=== PATIENT | male | born 1935 | race Caucasian/White ===

== ENCOUNTER 2016-10-23 06:10 | Day surgery (SDC) | payer OTHER, BC ==
[2016-10-16 17:06] VITALS: BMI 22.2
[2016-10-23] MEDS ORDERED: SUCCINYLCHOLINE CHLORIDE 200 MG/10 ML VIAL ONE (06:57)
[2016-10-23] MEDS ORDERED: PROPOFOL 20 ML ONE (06:57)
[2016-10-23] MEDS ORDERED: LIDOCAINE HCL/PF 2% SDV 5ML VIAL ONE (06:57)
[2016-10-23] MEDS ORDERED: MIDAZOLAM HCL 2 MG/2 ML SINGLE DOSE VIAL ONE (07:18)
[2016-10-23] MEDS ORDERED: LIDOCAINE HCL 1%, 10 MG/ML (20ML VIAL) INF ONE (07:35)
[2016-10-23] MEDS ORDERED: LIDOCAINE 1%/EPI 1:100000 (20 ML MULTI DOSE VIAL) ONE (07:42)
[2016-10-23] MEDS ORDERED: LIDOCAINE HCL 1%, 10 MG/ML (20ML VIAL) ONE (07:42)
[2016-10-23] MEDS ORDERED: KETOROLAC TROMETHAMINE 30 MG/1 ML VIAL ONE (07:48)
[2016-10-23] MEDS ORDERED: ONDANSETRON 4 MG/2 ML VIAL ONE (07:48)
[2016-10-23] MEDS ORDERED: DEXAMETHASONE SOD PHOSPHATE 4 MG/1 ML VIAL ONE (07:53)
[2016-10-23 08:34] VITALS: TEMP 98.2
[2016-10-23 08:53] VITALS: BP 133/74; PULSE 52
[2016-10-23] MEDS ORDERED: ACETAMINOPHEN 325 MG TABLET (FP) PO PRN (09:04)
[2016-10-23] MEDS ORDERED: ONDANSETRON 4 MG/2 ML VIAL IVPUSH PRN (09:04)
[2016-10-23] MEDS ORDERED: oxyCODONE HCL 5 MG TABLET PO PRN (09:04)
[2016-10-23] MEDS ORDERED: LACTATED RINGERS SOLUTION 1,000 ML IV SCH (09:15)
--- NOTE | 2016-10-23 10:30 | OP ---
DATE OF OPERATION: 10/23/2016 SURGEON: Clemente Fajardo MD PREOPERATIVE DIAGNOSIS: Right carpal tunnel syndrome. POSTOPERATIVE DIAGNOSIS: Right carpal tunnel syndrome. OPERATIVE PROCEDURE: Right carpal tunnel release. ANESTHESIA: Local with sedation. COMPLICATIONS: None. ESTIMATED BLOOD LOSS: Minimal. INDICATIONS FOR PROCEDURE: The patient is an 81-year-old male with the above findings, indicated for operative treatment. The risks, benefits, and alternatives were discussed with the patient, and proper informed consent was obtained. PROCEDURE: After proper identification of the patient and the correct operative site, the patient was brought to the operating room and placed supine on the table with prominences well padded. Sedation was given by the anesthesiologist. Local anesthesia was given with 2% lidocaine. Right upper extremity was prepped and draped in the usual sterile fashion. Well-padded tourniquet was placed with a sterile prep. Esmarch bandage used to exsanguinate the right upper extremity. Tourniquet inflated to 250 mmHg. A longitudinal incision made over the proximal aspect of the palm. Incision was taken sharply through the skin with blunt and sharp dissection through subcutaneous tissues. Palmar fascia was divided longitudinally. The transverse carpal ligament along with the distal 4 cm of antebrachial fascia was divided longitudinally under direct visualization with loupe magnification. This provided complete release of the median nerve at the wrist. Wound was irrigated with saline and repaired with 5-0 nylon suture. Sterile dressings were applied. The patient was reversed from anesthesia and brought to the recovery room in stable condition. He tolerated the procedure well. Sultana ELI/[id number]
== END 2016-10-23 09:07 | disposition home or self-care (01) ==
LOC: FASU 06:10
PROVIDERS: ATTEND Orthopaedic Surgery Hand Surgery
PROC: 01N50ZZ Release Median Nerve, Open Approach (ICD-10-PCS; principal; 2016-10-23 07:31)
DX: G56.01 Carpal tunnel syndrome, right upper limb (principal)

== ENCOUNTER 2016-11-20 07:58 | Day surgery (SDC) | payer OTHER, BC ==
[2016-11-18 12:34] VITALS: BMI 22.2
[2016-11-20] MEDS: CIPROFLOXACIN 0.3% EYE DROPS 5 ML BOTTLE ONE ×3 (08:30→08:40)
[2016-11-20] MEDS: CYCLOPENTOLATE 2% OPHTH SOLN 2 ML BOTTLE ONE ×3 (08:30→08:40)
[2016-11-20] MEDS: PHENYLEPHRINE 2.5% OPHTH SOLN 15 ML BOTTLE ONE ×3 (08:30→08:40)
[2016-11-20] MEDS: TROPICAMIDE 1% OPHTH SOLN 15 ML BOTTLE ONE ×3 (08:30→08:40)
[2016-11-20 08:34] VITALS: TEMP 97.5
[2016-11-20] MEDS ORDERED: MIDAZOLAM HCL 2 MG/2 ML SINGLE DOSE VIAL ONE (10:13)
[2016-11-20 11:21] VITALS: BP 124/72; PULSE 57
--- NOTE | 2016-11-20 11:47 | OP ---
DATE OF OPERATION: 11/20/2016 OPERATIVE PROCEDURE: Lens phacoemulsification with posterior chamber intraocular lens placement, right eye. PREOPERATIVE DIAGNOSIS: Visually significant cataract of right eye. POSTOPERATIVE DIAGNOSIS: Visually significant cataract of right eye. SURGEON: Jose Robles M.D. ANESTHESIA: MAC. PROCEDURE: The patient was brought to the operating room and placed under monitored anesthesia care by Anesthesia. A drop of Tetracaine was then placed over the right eye. The patient was then prepped and draped in the usual sterile manner. A speculum was then placed over the right eye. The eye was then well irrigated with copious amounts of BSS (balanced salt solution). The operating microscope was then moved into position. A paracentesis was performed using a 15 degree blade. At this point 0.5 mL of 1% preservative free-lidocaine was injected into the anterior chamber. Amvisc plus was then injected into the anterior chamber. A clear corneal incision was then formed using a 2.2 mm keratome. A capsulorrhexis was then performed in a continuous circular fashion beginning with a cystotome completed with an Utratas forceps. Hydrodissection was then performed using BSS on a cannula. The phaco probe was then introduced through the corneal wound and the cataract was removed using the phaco chop technique. Approximately 3 seconds of absolute phaco time was used. The remaining cortex was then removed using irrigation and aspiration with an I/A probe. The capsule was then filled with regular Amvisc and the capsule was noted to be intact. A previously selected foldable posterior chamber intraocular lens was then injected into the capsule through the corneal wound using a lens injector. It was then dialed into position using a Sinskey hook. The Amvisc was then removed using irrigation and aspiration. Miostat was then injected through the paracentesis to constrict the pupil. The paracentesis and corneal wound were then hydrated and noted to be water tight. A drop of Maxitrol was then placed over the eye. The speculum was removed and clear shield was taped over the eye. The patient tolerated the procedure well and there were no surgical complications. The patient was asked to follow up in my office the next day. JOSE ROBLES M.D. BALJINDER/[id number]
== END 2016-11-20 11:30 | disposition home or self-care (01) ==
LOC: FASU 07:58
PROVIDERS: ATTEND Ophthalmology
PROC: 08RJ3JZ Replacement of Right Lens with Synthetic Substitute, Percutaneous Approach (ICD-10-PCS; principal; 2016-11-20 10:24)
DX: H26.8 Other specified cataract (principal)

== ENCOUNTER 2016-12-11 09:11 | Day surgery (SDC) | payer OTHER, BC ==
[2016-12-10 10:00] VITALS: BMI 22.2
[2016-12-11] MEDS: PHENYLEPHRINE 2.5% OPHTH SOLN 15 ML BOTTLE ONE ×3 (09:15→09:25)
[2016-12-11] MEDS: CIPROFLOXACIN 0.3% EYE DROPS 5 ML BOTTLE ONE ×3 (09:15→09:25)
[2016-12-11] MEDS: CYCLOPENTOLATE 2% OPHTH SOLN 2 ML BOTTLE ONE ×3 (09:15→09:25)
[2016-12-11] MEDS: TROPICAMIDE 1% OPHTH SOLN 15 ML BOTTLE ONE ×3 (09:15→09:25)
[2016-12-11] MEDS ORDERED: MIDAZOLAM HCL 2 MG/2 ML SINGLE DOSE VIAL ONE (10:43)
[2016-12-11] MEDS ORDERED: ONDANSETRON 4 MG/2 ML VIAL ONE (10:44)
[2016-12-11 12:06] VITALS: BP 121/80; PULSE 57; TEMP 98
== END 2016-12-11 12:05 | disposition home or self-care (01) ==
LOC: FASU 09:11
PROVIDERS: ATTEND Ophthalmology
PROC: 08RK3JZ Replacement of Left Lens with Synthetic Substitute, Percutaneous Approach (ICD-10-PCS; principal; 2016-12-11 10:57)
DX: H26.8 Other specified cataract (principal)

== ENCOUNTER 2017-12-26 10:21 | Inpatient (IN) | payer OTHER, BC ==
[2017-12-26] MEDS ORDERED: SODIUM CHLORIDE FOR INHALATION 3 ML VIAL.NEB IH ONE (10:54)
[2017-12-26 12:11] LABS: MEAN PLT VOLUME 8.1 fl (7.5-11.1)
[2017-12-26 12:13] LABS: BASO % 0.2 % (0-2.0); HEMATOCRIT 38.9 % (35.4-49); HEMOGLOBIN 12.9 GM/dl (11.7-16.9); LYMPH % 8.6 % (8-40); MCHC 33.2 g/dl (32.0-35.9); MEAN CELL VOLUME 90.5 fl (80-96); MONO % 9.4 % (3.8-10.2); NEUT % 80.8 % (42.8-82.8); PLATELET COUNT 203 K/MM3 (134-434); RDW 12.8 % (11.9-15.9)
[2017-12-26 12:16] LABS: ALBUMIN 3.4 g/dl (3.5-5.0); ALK PHOS 71 U/L (32-92); ANION GAP 7 MMOL/L (8-16); BILIRUBIN,TOTAL 0.7 mg/dl (0.2-1.0); BLOOD UREA NITROGEN 25 mg/dl (7-18); CALCIUM 8.5 mg/dl (8.4-10.2); CHLORIDE 105 mmol/L (98-107); CO2 21 mmol/L (22-28); CREATININE 1.3 mg/dl (0.6-1.3); GLUCOSE,RANDOM 87 mg/dl (74-106); POTASSIUM 3.9 mmol/L (3.5-5.1); SGOT/AST 27 U/L (10-42); SGPT/ALT 35 U/L (10-40); SODIUM 133 mmol/L (136-145); TOT PROT 6.6 g/dl (6.4-8.3)
--- NOTE | 2017-12-26 12:19 | PDOC ---
History of Present Illness - General Chief Complaint: Shortness of Breath Stated Complaint: shortness of breath Time Seen by Provider: 12/26/17 10:29 - History of Present Illness Initial Comments: 12/26/17 12:17 82 M with no significant PMH presents to ED with SOB and cough. Pt states that he started having symptoms 3 days ago. He reports fevers, bodyaches, and generalized malaise. Pt was seen by his PMD Dr. Polk yesterday and had a flu swab that was positive for flu B. Pt states that he was started on tamiflu yesterday. However, today pt returns with worsening SOB and cough. He reports dry cough. Denies chest pain. Denies F/C. Denies leg swelling. Past History - Past Medical History Allergies/Adverse Reactions: Allergies Allergy/AdvReac Type Severity Reaction Status Date / Time Penicillins Allergy Intermediate Swelling Verified 12/26/17 10:30 povidone-iodine Allergy swelling Verified 12/26/17 10:30 [From Betadine] soap [From Betadine] Allergy swelling Verified 12/26/17 10:30 Home Medications: Ambulatory Orders Cholecalciferol (Vitamin D3) [Vitamin D3] 2,000 unit PO DAILY capsule 03/22/16 Oseltamivir Phosphate [Tamiflu] 75 mg PO BID 12/26/17 Anemia: No Asthma: No Cancer: Yes (BREAST CANCER-RIGHT 2006) Cardiac Disorders: No CVA: No COPD: No CHF: No Dementia: No Diabetes: No GI Disorders: No Disorders: No HTN: No Hypercholesterolemia: No Liver Disease: No Seizures: No Thyroid Disease: No Other medical history: paget's disease - Surgical History Abdominal Surgery: Yes (Hernia repair) Appendectomy: Yes (2010,RUPTURED) Cardiac Surgery: No Cholecystectomy: No Lung Surgery: No Neurologic Surgery: No Orthopedic Surgery: Yes (BACK & RIGHT LEG DURING POLISH WAR) - Immunization History Immunization Up to Date: Yes (flushot 3 weeks ago 12/2017) - Suicide/Smoking/Psychosocial Hx Smoking History: Former smoker Have you smoked in the past 12 months: No If you are a former smoker, when did you quit?: 1954 Information on smoking cessation initiated: No Hx Alcohol Use: No Drug/Substance Use Hx: No Substance Use Type: None Hx Substance Use Treatment: No Review of Systems - Review of Systems Comments:: 12/26/17 12:18 GENERAL/CONSTITUTIONAL: No fever or chills. + weakness. HEAD, EYES, EARS, NOSE AND THROAT: No change in vision. No ear pain or discharge. No sore throat. CARDIOVASCULAR: No chest pain, no loss of consciousness RESPIRATORY: + cough, + SOB, no wheezing, or hemoptysis. GASTROINTESTINAL: No nausea, vomiting, diarrhea or constipation. GENITOURINARY: No dysuria, frequency, or change in urination. MUSCULOSKELETAL: No joint or muscle swelling or pain. No neck or back pain. SKIN: No rash NEUROLOGIC: No vertigo, no change in strength/sensation. ENDOCRINE: No increased thirst. No abnormal weight change. HEMATOLOGIC/LYMPHATIC: No anemia, easy bleeding, or history of blood clots. ALLERGIC/IMMUNOLOGIC: No hives or skin allergy. *Physical Exam - Vital Signs Last Vital Signs Temp Pulse Resp BP Pulse Ox 97.6 F 63 20 131/74 99 12/26/17 10:21 12/26/17 10:21 12/26/17 10:21 12/26/17 10:21 12/26/17 10:21 - Physical Exam Comments: 12/26/17 12:18 "GENERAL: Awake, alert, and fully oriented, in no acute distress. HEAD: No signs of trauma EYES: PERRLA, EOMI, sclera anicteric, conjunctiva clear ENT: Auricles normal inspection, hearing grossly normal, nares patent, oropharynx clear without exudates. Moist mucosa NECK: Nontender, no stepoffs, Normal ROM, supple, no lymphadenopathy, JVD, or masses LUNGS: Breath sounds equal, clear to auscultation bilaterally. No wheezes, and no crackles HEART: Regular rate and rhythm, normal S1 and S2, no murmurs, rubs or gallops ABDOMEN: Soft, nontender, normoactive bowel sounds. No guarding, no rebound. No masses EXTREMITIES: Normal range of motion, no edema. No clubbing or cyanosis. No cords, erythema, or tenderness NEUROLOGICAL: Cranial nerves II through XII intact. 5/5 strength and sensation in all extremities, Normal speech, normal gait, normal cerebellar function SKIN: Warm, Dry, normal turgor, no rashes or lesions noted. Heart Score/ECG Review - ECG Impressions Comment:: 12/26/17 12:19 NSR, no TAYE/STDs, no TWIs, axis wnl, intervals wnl, rate 68 ED Treatment Course - LABORATORY CBC & Chemistry Diagram: 12/26/17 11:14 12/26/17 11:14 - RADIOLOGY Radiology Studies Ordered: Category Date Time Status CHEST PA & LAT [RAD] Stat Radiology 12/26/17 10:53 Completed - Medications Given in the ED: ED Medications Discontinued Medications Generic Name Dose Route Start Last Admin Trade Name Freq PRN Reason Stop Dose Admin Sodium Chloride 3 ml 12/26/17 10:54 12/26/17 11:06 Normal Saline For Inhalation - IH 12/26/17 10:55 3 ml ONCE ONE Administration Medical Decision Making - Medical Decision Making 12/26/17 12:18 82 M with SOB, cough, weakness. Diagnosed with influenza yesterday and returning with worsening SOB. Concerning for possible PNA. Pt with no clinical signs of volume overload. Will r/o ACS, though pt's EKG is nonischemic. - Labs - CXR 12/26/17 12:49 CXR shows RUL consolidation Labs wnl Will start ceftriaxone + azithro for PNA Continue tamiflu 12/26/17 13:24 Pt admitted to hospitalist. *DC/Admit/Observation/Transfer Diagnosis at time of Disposition: Influenza B, Pneumonia - Discharge Dispostion Condition at time of disposition: Fair Decision to Admit order: Yes - Referrals - Patient Instructions - Post Discharge Activity - Attestations Physician Attestion: 12/26/17 13:24 I, Dr. Rusty Ortega MD, attest that this document has been prepared under my direction and personally reviewed by me in its entirety. I further attest, that it accurately reflects all work, treatment, procedures and medical decision -making performed by me.
[2017-12-26] MEDS ORDERED: CEFTRIAXONE 1,000 MG in DEXTROSE 5%-WATER - 50 ML IVPB ONE (12:38)
[2017-12-26] MEDS ORDERED: AZITHROMYCIN IVPB 500 MG in DEXTROSE 5%-WATER - 250 ML IVPB ONE (12:39)
[2017-12-26] MEDS ORDERED: AZITHROMYCIN 500 MG VIAL IVPB ONE (12:46)
[2017-12-26] MEDS ORDERED: cefTRIAXone SODIUM 1 GM VIAL ONE (12:47)
[2017-12-26] MEDS ORDERED: ACETAMINOPHEN 325 MG TABLET (FP) PO ONE (13:53)
[2017-12-26] MEDS ORDERED: ACETAMINOPHEN 325 MG TABLET (FP) ONE (14:18)
--- NOTE | 2017-12-26 14:49 | HP ---
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 Patient was seen by his PCP Dr. Polk yesterday and a flu swab was positive for Influenza B. Patient was started on Tamiflu. Patient presented to the ED today with worsening cough and SOB. Temp at home to 103.4 with shaking chills, headache, body aches. 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) PAST SURGICAL HISTORY: Right mastectomy 2006 Appendectomy 2010 Hernia repair Back and right leg surgery during [place] Social History: Smoking: quit 1954 Alcohol: no Drugs: no Family History: Allergies Penicillins Allergy (Intermediate, Verified 12/26/17 10:30) Swelling povidone-iodine [From Betadine] Allergy (Verified 12/26/17 10:30) swelling soap [From Betadine] Allergy (Verified 12/26/17 10:30) swelling HOME MEDICATIONS: Home Medications Medication Instructions Recorded Oseltamivir Phosphate [Tamiflu] 75 mg PO BID 12/26/17 REVIEW OF SYSTEMS CONSTITUTIONAL: +fever, chills, weakness Absent: diaphoresis, malaise, loss of appetite, weight change HEENT: Absent: rhinorrhea, nasal congestion, throat pain, throat swelling, difficulty swallowing, mouth swelling, ear pain, eye pain, visual changes CARDIOVASCULAR: Absent: chest pain, syncope, palpitations, irregular heart rate, lightheadedness , peripheral edema RESPIRATORY: +cough, SOB Absent: dyspnea with exertion, orthopnea, wheezing, stridor, hemoptysis GASTROINTESTINAL: Absent: abdominal pain, abdominal distension, nausea, vomiting, diarrhea, constipation, melena, hematochezia GENITOURINARY: Absent: dysuria, frequency, urgency, hesitancy, hematuria, flank pain, genital pain MUSCULOSKELETAL: Absent: myalgia, arthralgia, joint swelling, back pain, neck pain SKIN: Absent: rash, itching, pallor HEMATOLOGIC/IMMUNOLOGIC: Absent: easy bleeding, easy bruising, lymphadenopathy, frequent infections ENDOCRINE: Absent: unexplained weight gain, unexplained weight loss, heat intolerance, cold intolerance NEUROLOGIC: Absent: headache, focal weakness or paresthesias, dizziness, unsteady gait, seizure, mental status changes, bladder or bowel incontinence PSYCHIATRIC: Absent: anxiety, depression, suicidal or homicidal ideation, hallucinations. PHYSICAL EXAMINATION Vital Signs - 24 hr 12/26/17 12/26/17 10:21 14:34 Temperature 97.6 F 100 F H Pulse Rate 63 Pulse Rate [ 102 H Apical] Respiratory 20 20 Rate Blood Pressure 131/74 Blood Pressure 132/74 [Arm] O2 Sat by Pulse 99 96 Oximetry (%) GENERAL: Awake, alert, and fully oriented, in mild distress from coughing HEAD: Normal with no signs of trauma. EYES: Pupils equal, round and reactive to light, extraocular movements intact, sclera anicteric, conjunctiva clear. No lid lag. EARS, NOSE, THROAT: Ears normal, nares patent, oropharynx clear without exudates. Moist mucous membranes. NECK: Normal range of motion, supple without lymphadenopathy, JVD, or masses. LUNGS: Diminished on the right HEART: Regular rate and rhythm, normal S1 and S2 +murmur ABDOMEN: Soft, nontender, not distended MUSCULOSKELETAL: Normal range of motion at all joints. No bony deformities or tenderness. No CVA tenderness. UPPER EXTREMITIES: 2+ pulses, warm, well-perfused. No cyanosis. No clubbing. No peripheral edema. LOWER EXTREMITIES: 2+ pulses, warm, well-perfused. No calf tenderness. No peripheral edema. NEUROLOGICAL: Cranial nerves II-XII intact. Normal speech. Laboratory Results - last 24 hr 12/26/17 12/26/17 12/26/17 11:14 11:14 11:14 WBC 6.0 RBC 4.30 Hgb 12.9 Hct 38.9 MCV 90.5 MCH 30.0 MCHC 33.2 RDW 12.8 Plt Count 203 D MPV 8.1 Absolute Neuts (auto) 4.8 Neutrophils % 80.8 Lymphocytes % 8.6 D Monocytes % 9.4 Eosinophils % 1.0 Basophils % 0.2 Sodium 133 L Potassium 3.9 Chloride 105 Carbon Dioxide 21 L D Anion Gap 7 L BUN 25 H Creatinine 1.3 Creat Clearance w eGFR 52.59 Random Glucose 87 Calcium 8.5 Total Bilirubin 0.7 AST 27 D ALT 35 D Alkaline Phosphatase 71 Creatine Kinase 52 Troponin I B-Natriuretic Peptide 591.3 H Total Protein 6.6 Albumin 3.4 L 12/26/17 11:14 WBC RBC Hgb Hct MCV MCH MCHC RDW Plt Count MPV Absolute Neuts (auto) Neutrophils % Lymphocytes % Monocytes % Eosinophils % Basophils % Sodium Potassium Chloride Carbon Dioxide Anion Gap BUN Creatinine Creat Clearance w eGFR Random Glucose Calcium Total Bilirubin AST ALT Alkaline Phosphatase Creatine Kinase Troponin I < 0.03 B-Natriuretic Peptide Total Protein Albumin ASSESSMENT/PLAN 82 year-old male with a 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 Community-acquired pneumonia Influenza B --start Zosyn --received 2 doses Tamiflu prior to arrival, continue 8 more doses --duonebs --maintain SpO2>94% --ID to follow Paget's Disease of the breast --stable FEN Fluids: NS@75mL/hr Electrolytes: replete as inidcated Nutrition: regular diet DVT prophylaxis: subq heparin Dispo: continues to require inpatient care. Full code. Visit type - Emergency Visit Emergency Visit: Yes ED Registration Date: 12/27/17 Care time: The patient presented to the Emergency Department on the above date and was hospitalized for further evaluation of their emergent condition. - New Patient This patient is new to me today: Yes Date on this admission: 12/27/17 - Critical Care Critical Care patient: No
[2017-12-26 16:02] VITALS: BMI 22.5
[2017-12-26] MEDS ORDERED: SODIUM CHLORIDE 500 ML IV STA (18:30)
[2017-12-26] MEDS: ALBUTEROL SO4 2.5/IPRATROPIUM 0.5 INH SOL 3 ML VIAL.NEB. NEB SCH ×2 (19:19→21:04)
[2017-12-26] MEDS: SODIUM CHLORIDE 1,000 ML IV SCH (21:05)
[2017-12-26] MEDS: PIPERACILLIN/TAZOB 3.375 GM 3.375 GM/50 ML BAG IVPB SCH (21:05)
[2017-12-26] MEDS ORDERED: OSELTAMIVIR PHOSPHATE 75 MG CAPSULE PO SCH (22:00)
[2017-12-26] MEDS: OSELTAMIVIR PHOSPHATE 30 MG CAPSULE PO SCH (22:00)
[2017-12-27] MEDS: PIPERACILLIN/TAZOB 3.375 GM 3.375 GM/50 ML BAG IVPB SCH ×3 (02:00→17:09)
[2017-12-27] MEDS: ACETAMINOPHEN 325 MG TABLET (FP) PO PRN ×3 (06:35→18:50)
[2017-12-27] MEDS: HEPARIN NA (PORCINE) 5,000 UNITS/ML 1ML VIAL SQ SCH ×3 (06:35→22:09)
[2017-12-27] MEDS: ALBUTEROL SO4 2.5/IPRATROPIUM 0.5 INH SOL 3 ML VIAL.NEB. NEB SCH ×4 (08:00→20:00)
--- NOTE | 2017-12-27 09:53 | CON.ID ---
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 Polk yesterday and a flu swab was positive for Influenza B and was started on tamiflu inspite of tamiflu patient became worse and had shaking chills and fever and came to the ER and was admitted patients was worked up and found to have infiltrate on the xray and the patient just got her ct scan completed currently patient is comfortable in the room - History Source History Provided By: Patient Limitations to Obtaining History: No Limitations - Alcohol/Substance Use Hx Alcohol Use: No - Smoking History Smoking history: Former smoker Have you smoked in the past 12 months: No If you are a former smoker, when did you quit?: 1954 Home Medications - Allergies Allergies/Adverse Reactions: Allergies Allergy/AdvReac Type Severity Reaction Status Date / Time Penicillins Allergy Intermediate Swelling Verified 12/26/17 10:30 povidone-iodine Allergy swelling Verified 12/26/17 10:30 [From Betadine] soap [From Betadine] Allergy swelling Verified 12/26/17 10:30 - Home Medications Home Medications: Ambulatory Orders Cholecalciferol (Vitamin D3) [D3-2000] 1 tab PO DAILY 12/26/17 Clindamycin [Cleocin -] 300 mg PO TID #15 capsule 12/30/17 Review of Systems - Review of Systems Constitutional: reports: Chills, Fever Eyes: reports: No Symptoms HENT: reports: No Symptoms Cardiovascular: reports: No Symptoms Respiratory: reports: Cough, SOB, SOB on Exertion Gastrointestinal: reports: No Symptoms Genitourinary: reports: No Symptoms Musculoskeletal: reports: No Symptoms Integumentary: reports: No Symptoms Neurological: reports: No Symptoms Endocrine: reports: No Symptoms Hematology/Lymphatic: reports: No Symptoms Psychiatric: reports: No Symptoms Physical Exam Vital Signs: Vital Signs Temperature 102.9 F H 12/27/17 06:49 Pulse Rate 81 12/27/17 06:49 Respiratory Rate 18 12/27/17 06:49 Blood Pressure 130/56 L 12/27/17 06:49 O2 Sat by Pulse Oximetry (%) 98 12/27/17 06:49 Constitutional: Yes: No Distress, Calm Eyes: Yes: Conjunctiva Clear HENT: Yes: Atraumatic, Normocephalic Neck: Yes: Supple, Trachea Midline Cardiovascular: Yes: Regular Rate and Rhythm Respiratory: Yes: WNL, On Nasal O2, Poor Air Entry Gastrointestinal: Yes: Normal Bowel Sounds, Soft Musculoskeletal: Yes: WNL Extremities: Yes: WNL Labs: CBC, BMP 12/26/17 11:14 12/26/17 11:14 Imaging - Results Chest X-ray: Report Reviewed, Image Reviewed Cat Scan: Image Reviewed Assessment/Plan Problem List - Problems (1) Influenza B Code(s): J10.1 - FLU DUE TO OTH IDENT INFLUENZA VIRUS W OTH RESP MANIFEST (2) Pneumonia Code(s): J18.9 - PNEUMONIA, UNSPECIFIED ORGANISM (3) Hilar adenopathy Code(s): R59.0 - LOCALIZED ENLARGED LYMPH NODES (4) Mediastinal adenopathy Code(s): R59.0 - LOCALIZED ENLARGED LYMPH NODES ct scan noted patient has extensive pneumonia post influenza plan will start patient on zosyn stop zithro incentive tammy nutrition rest as per the team await for cx reports and official result of ct scan
[2017-12-27] MEDS ORDERED: AZITHROMYCIN IVPB 500 MG/250 ML BAG IVPB SCH (10:00)
[2017-12-27] MEDS: guaiFENesin/CODEINE 10 ML UNIT-DOSE CUPS PO PRN (10:54)
[2017-12-27] MEDS: OSELTAMIVIR PHOSPHATE 30 MG CAPSULE PO SCH ×2 (10:54→22:10)
[2017-12-27 12:51] LABS: BASO % 0.4 % (0-2.0); EOS % 0.6 % (0-4.5); HEMATOCRIT 36.2 % (35.4-49); HEMOGLOBIN 11.9 GM/dl (11.7-16.9); LYMPH % 13.1 % (8-40); MCHC 32.8 g/dl (32.0-35.9); MEAN CELL VOLUME 91.4 fl (80-96); MONO % 11.3 % (3.8-10.2); NEUT % 74.6 % (42.8-82.8); PLATELET COUNT 201 K/MM3 (134-434); RBC 3.96 M/mm3 (4.00-5.60); RDW 13.2 % (11.9-15.9); WHITE BLOOD COUNT 6.2 K/mm3 (4.0-10.8)
[2017-12-27 12:55] LABS: ACTIVATED PTT 29.1 SECONDS (25.2-36.5)
[2017-12-27 12:59] LABS: INR 1.26 (0.82-1.09)
[2017-12-27 13:24] LABS: ALK PHOS 74 U/L (32-92); ANION GAP 7 MMOL/L (8-16); BILIRUBIN,TOTAL 0.6 mg/dl (0.2-1.0); BLOOD UREA NITROGEN 16 mg/dl (7-18); CALCIUM 8.1 mg/dl (8.4-10.2); CHLORIDE 102 mmol/L (98-107); CO2 22 mmol/L (22-28); CREATININE 1.2 mg/dl (0.6-1.3); GLUCOSE,RANDOM 151 mg/dl (74-106); MAGNESIUM 1.9 mg/dL (1.8-2.4); PHOSPHOROUS 2.5 mg/dl (2.5-4.6); POTASSIUM 3.9 mmol/L (3.5-5.1); SGOT/AST 34 U/L (10-42); SGPT/ALT 41 U/L (10-40); SODIUM 131 mmol/L (136-145)
--- NOTE | 2017-12-27 15:42 | PN ---
Physical Exam: SUBJECTIVE: Patient seen and examined OBJECTIVE: Vital Signs Period Temp Pulse Resp BP Sys/Woodard Pulse Ox Last 24 Hr 98.2 F-103 F 66-87 18-18 100-130/46-64 96-100 GENERAL: The patient is awake, alert, and fully oriented, in no acute distress. LUNGS: Diminished sounds on right HEART: Regular rate and rhythm, S1, S2 +murmur ABDOMEN: Soft, nontender, nondistended EXTREMITIES: 2+ pulses, warm, well-perfused, no edema. NEUROLOGICAL: Cranial nerves II through XII grossly intact. Normal speech Laboratory Results - last 24 hr 12/27/17 12/27/17 12/27/17 12:25 12:25 12:25 WBC 6.2 RBC 3.96 L Hgb 11.9 Hct 36.2 MCV 91.4 MCH 30.0 MCHC 32.8 RDW 13.2 Plt Count 201 MPV 8.0 Absolute Neuts (auto) 4.7 Neutrophils % 74.6 Lymphocytes % 13.1 D Monocytes % 11.3 H Eosinophils % 0.6 Basophils % 0.4 PT with INR 14.0 H INR 1.26 H PTT (Actin FS) 29.1 Sodium 131 L Potassium 3.9 Chloride 102 Carbon Dioxide 22 Anion Gap 7 L BUN 16 Creatinine 1.2 Creat Clearance w eGFR 57.68 Random Glucose 151 H D Calcium 8.1 L Phosphorus 2.5 Magnesium 1.9 Total Bilirubin 0.6 AST 34 D ALT 41 H Alkaline Phosphatase 74 Total Protein 6.0 L Albumin 3.0 L Active Medications Generic Name Dose Route Start Last Admin Trade Name Freq PRN Reason Stop Dose Admin Acetaminophen 650 mg 12/26/17 18:18 12/27/17 10:54 Tylenol - PO 650 mg Q6H PRN Administration FEVER Albuterol/Ipratropium 1 amp 12/26/17 18:15 12/27/17 08:00 Duoneb - NEB 1 amp RQID MINH Administration Guaifenesin/Codeine Phosphate 10 ml 12/26/17 18:48 12/27/17 10:54 Robitussin Ac - PO 10 ml Q8H PRN Administration COUGH Heparin Sodium (Porcine) 5,000 unit 12/27/17 06:00 12/27/17 06:35 Heparin - SQ 5,000 unit TID MINH Administration Piperacillin Sod/Tazobactam Sod 3.375 gm in 50 mls @ 100 mls/hr 12/26/17 18: 00 12/27/17 10:40 Zosyn 3.375gm Ivpb (Pre-Docked) IVPB 100 mls/hr Q8H-IV MINH Administration Protocol Sodium Chloride 1,000 mls @ 75 mls/hr 12/26/17 18:30 12/26/17 21:05 Normal Saline - IV 75 mls/hr ASDIR MINH Administration Oseltamivir Phosphate 30 mg 12/26/17 22:00 12/27/17 10:54 Tamiflu - PO 12/30/17 10:01 30 mg BID MINH Administration ASSESSMENT/PLAN: 82 year-old male with a 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 Community-acquired pneumonia Influenza B --continue Zosyn (day #2) --received 2 doses Tamiflu prior to arrival, complete 8 more doses --duonebs --maintain SpO2>94% --collect urine antigen --ID following --pulmonary following Paget's Disease of the breast --stable FEN Fluids: NS@75mL/hr Electrolytes: replete as inidcated Nutrition: regular diet DVT prophylaxis: subq heparin Dispo: continues to require inpatient care. Full code. Visit type - Emergency Visit Emergency Visit: Yes ED Registration Date: 12/27/17 Care time: The patient presented to the Emergency Department on the above date and was hospitalized for further evaluation of their emergent condition. - New Patient This patient is new to me today: No - Critical Care Critical Care patient: No
--- NOTE | 2017-12-27 16:01 | PN ---
Progress Note (short form) - Note Progress Note: PULMONARY CONSULTATION DICTATED 12/27/17 IMP RUL/RLL PNEUMONIA INFLUENZA B MEDIASTINAL AND HILAR ADENOPATHY LIKELY REACTIVE PLAN IV ABX PER ID TAMIFLU O2 NEEDED INHALED BRONCHODILATORS LEGIONELLA URINARY ANTIGEN F/U CHEST X-RAYS F/U CHEST CT 6-8 WKS TO CONFIRM RESOLUTION OF INFILTRATES DR BECKETT Problem List - Problems (1) Influenza B Code(s): J10.1 - FLU DUE TO OTH IDENT INFLUENZA VIRUS W OTH RESP MANIFEST (2) Pneumonia Code(s): J18.9 - PNEUMONIA, UNSPECIFIED ORGANISM (3) Hilar adenopathy Code(s): R59.0 - LOCALIZED ENLARGED LYMPH NODES (4) Mediastinal adenopathy Code(s): R59.0 - LOCALIZED ENLARGED LYMPH NODES
[2017-12-27] MEDS: SODIUM CHLORIDE 1,000 ML IV SCH (22:11)
[2017-12-28] MEDS: PIPERACILLIN/TAZOB 3.375 GM 3.375 GM/50 ML BAG IVPB SCH ×2 (01:30→09:50)
[2017-12-28] MEDS: HEPARIN NA (PORCINE) 5,000 UNITS/ML 1ML VIAL SQ SCH ×3 (06:54→21:31)
[2017-12-28] MEDS: ALBUTEROL SO4 2.5/IPRATROPIUM 0.5 INH SOL 3 ML VIAL.NEB. NEB SCH ×4 (08:55→21:32)
--- NOTE | 2017-12-28 09:07 | PN ---
Progress Note, Physician History of Present Illness: PULMONARY ALERT,FEELING BETTER,COMFORTABLE,SLEPT WELL - Current Medication List Current Medications: Active Medications Acetaminophen (Tylenol -) 650 mg PO Q6H PRN PRN Reason: FEVER Last Admin: 12/27/17 18:50 Dose: 650 mg Albuterol/Ipratropium (Duoneb -) 1 amp NEB RQID [facility] Last Admin: 12/28/17 08:55 Dose: 1 amp Guaifenesin/Codeine Phosphate (Robitussin Ac -) 10 ml PO Q8H PRN PRN Reason: COUGH Last Admin: 12/27/17 10:54 Dose: 10 ml Heparin Sodium (Porcine) (Heparin -) 5,000 unit SQ TID [facility] Last Admin: 12/28/17 06:54 Dose: 5,000 unit Piperacillin Sod/Tazobactam Sod (Zosyn 3.375gm Ivpb (Pre-Docked)) 3.375 gm in 50 mls @ 100 mls/hr IVPB Q8H-IV [facility]; Protocol Last Admin: 12/28/17 01:30 Dose: 100 mls/hr Sodium Chloride (Normal Saline -) 1,000 mls @ 75 mls/hr IV ASDIR [facility] Last Admin: 12/27/17 22:11 Dose: 75 mls/hr Oseltamivir Phosphate (Tamiflu -) 30 mg PO BID [facility] Stop: 12/30/17 10:01 Last Admin: 12/27/17 22:10 Dose: 30 mg - Objective Vital Signs: Vital Signs Temperature 98.7 F 12/28/17 08:06 Pulse Rate 67 12/28/17 08:06 Respiratory Rate 20 12/28/17 08:06 Blood Pressure 123/67 12/28/17 08:06 O2 Sat by Pulse Oximetry (%) 96 12/28/17 08:06 Constitutional: Yes: Well Nourished, Calm Eyes: Yes: WNL HENT: Yes: WNL Neck: Yes: WNL Cardiovascular: Yes: Regular Rate and Rhythm, S1, S2 Respiratory: Yes: Rales (CRACKLES ON R) Gastrointestinal: Yes: Normal Bowel Sounds, Soft Extremities: Yes: WNL Edema: No Labs: INR, PTT INR 1.26 (0.82-1.09) H 12/27/17 12:25 Problem List - Problems (1) Influenza B Code(s): J10.1 - FLU DUE TO OTH IDENT INFLUENZA VIRUS W OTH RESP MANIFEST (2) Pneumonia Code(s): J18.9 - PNEUMONIA, UNSPECIFIED ORGANISM (3) Hilar adenopathy Code(s): R59.0 - LOCALIZED ENLARGED LYMPH NODES (4) Mediastinal adenopathy Code(s): R59.0 - LOCALIZED ENLARGED LYMPH NODES Assessment/Plan IMP RUL/RLL PNEUMONIA INFLUENZA B MEDIASTINAL AND HILAR ADENOPATHY LIKELY REACTIVE PLAN IV ABX TAMIFLU O2 NEEDED INHALED BRONCHODILATORS LEGIONELLA URINARY ANTIGEN PENDING F/U CHEST X-RAYS DR BECKETT Problem List - Problems (1) Influenza B Code(s): J10.1 - FLU DUE TO OTH IDENT INFLUENZA VIRUS W OTH RESP MANIFEST (2) Pneumonia Code(s): J18.9 - PNEUMONIA, UNSPECIFIED ORGANISM (3) Hilar adenopathy Code(s): R59.0 - LOCALIZED ENLARGED LYMPH NODES (4) Mediastinal adenopathy Code(s): R59.0 - LOCALIZED ENLARGED LYMPH NODES
[2017-12-28] MEDS ORDERED: REFRIGERATED ANITBIOTICS ONE (09:17)
[2017-12-28] MEDS: OSELTAMIVIR PHOSPHATE 30 MG CAPSULE PO SCH ×2 (09:23→21:32)
[2017-12-28 09:25] LABS: BASO % 0.4 % (0-2.0); EOS % 3.1 % (0-4.5); HEMATOCRIT 34.5 % (35.4-49); HEMOGLOBIN 11.4 GM/dl (11.7-16.9); MCHC 32.9 g/dl (32.0-35.9); MEAN CELL VOLUME 91.2 fl (80-96); MEAN PLT VOLUME 8.6 fl (7.5-11.1); MONO % 14.4 % (3.8-10.2); NEUT % 66.1 % (42.8-82.8); PLATELET COUNT 198 K/MM3 (134-434); RBC 3.78 M/mm3 (4.00-5.60); RDW 12.9 % (11.9-15.9); WHITE BLOOD COUNT 4.8 K/mm3 (4.0-10.8)
[2017-12-28 09:45] LABS: ALBUMIN 2.8 g/dl (3.5-5.0); ALK PHOS 74 U/L (32-92); ANION GAP 10 MMOL/L (8-16); BILIRUBIN,TOTAL 0.6 mg/dl (0.2-1.0); BLOOD UREA NITROGEN 16 mg/dl (7-18); CALCIUM 8.2 mg/dl (8.4-10.2); CHLORIDE 103 mmol/L (98-107); CO2 21 mmol/L (22-28); CREATININE 1.1 mg/dl (0.6-1.3); GLUCOSE,RANDOM 87 mg/dl (74-106); POTASSIUM 4.3 mmol/L (3.5-5.1); SGOT/AST 38 U/L (10-42); SGPT/ALT 47 U/L (10-40); SODIUM 134 mmol/L (136-145); TOT PROT 5.9 g/dl (6.4-8.3)
[2017-12-28] MEDS ORDERED: DEXTROSE 5%-WATER - 50 ML IVPB ONE ×2 (09:45→17:05)
[2017-12-28] MEDS ORDERED: PIPERACILLIN/TAZOBACTAM 3.375 GM VIAL IVPB ONE ×2 (09:45→17:05)
[2017-12-28] MEDS: PIPERACILLIN/TAZOB 3.375 GM 3.375 GM in DEXTROSE 5%-WATER - 50 ML IVPB SCH ×2 (09:51→18:21)
--- NOTE | 2017-12-28 10:08 | CONS ---
DATE OF CONSULTATION: 12/27/2017 REFERRING PHYSICIAN: Agusto Polk MD; Eve Montaño NP The patient is an 82-year-old white male with past medical history of Paget's disease of breast s/p mastectomy admitted to [facility] with complaints of a 3- day history of increasing shortness of breath, cough, chest congestion, and generalized malaise. The patient states, approximately 3 days prior to admission, he started developing increasing shortness of breath and a cough. He also has weakness. He was seen by Dr. Polk and had a flu swab, which was positive for influenza B. He was started on Tamiflu the day prior to admission. He went, on the day of admission, to the emergency room with increasing shortness of breath and cough. He had a chest x- ray performed, which revealed evidence of right-sided infiltrate. He was admitted to the floor. He was started on broad-spectrum antibiotics. He underwent a CT scan of the chest, which revealed extensive infiltrates in the right upper lobe and right lower lobe and there was some hilar adenopathy. The patient is a nonsmoker. There is no history of occupational exposures to chemicals or fumes. He denies any history of hemoptysis. Denies any chest pain, nausea, vomiting, or diaphoresis. Denies any recent travel. There is no history of asthma or COPD in the past. PAST MEDICAL HISTORY: Paget's Disease of breast s/p mastectomy. REVIEW OF SYSTEMS: Positive dry cough, positive weakness, positive mild shortness of breath. No chest pain, no palpitations. Positive fever, positive chills. CURRENT MEDICATIONS: Tylenol; piperacillin; heparin; Robitussin-AC; DuoNeb; normal saline; Tamiflu. PHYSICAL EXAMINATION: General: The patient is a well-developed, well-nourished male, awake, alert, currently in no acute distress. Vital Signs: He is currently afebrile; temperature maximum 102.9. Respiratory rate is 19, blood pressure 108/64, and O2 saturation is 98% on room air. HEENT: Normocephalic, atraumatic. Neck: Supple. Heart: Regular, S1, S2. Chest: Few crackles on the right. Abdomen: Soft, bowel sounds are positive. Extremities: No cyanosis or edema. LABORATORIES: WBCs 6.2, hemoglobin 11.9, hematocrit 36.2 with a platelet count of 201,000. INR is 1.26. BUN 16, creatinine 1.2. BNP is 593. CHEST CT: As noted earlier. IMPRESSION: 1. Multilobar pneumonia, community-acquired. 2. Influenza B. PLAN: Continue broad-spectrum antibiotics, as per Infectious Disease; continue Tamiflu, supplemental O2, inhaled bronchodilators p.r.n.; obtain followup chest x-ray; followup chest CT in 6 to 8 weeks to document resolution of infiltrates; also, obtain legionella urinary antigen and pneumococcal urinary antigen. GRACIELA BECKETT M.D. [id number] MTDD
--- NOTE | 2017-12-28 12:11 | PN ---
Progress Note, Physician History of Present Illness: patient looking much better breathing better - Current Medication List Current Medications: Active Medications Acetaminophen (Tylenol -) 650 mg PO Q6H PRN PRN Reason: FEVER Last Admin: 12/27/17 18:50 Dose: 650 mg Albuterol/Ipratropium (Duoneb -) 1 amp NEB RQID [facility] Last Admin: 12/28/17 12:01 Dose: 1 amp Guaifenesin/Codeine Phosphate (Robitussin Ac -) 10 ml PO Q8H PRN PRN Reason: COUGH Last Admin: 12/27/17 10:54 Dose: 10 ml Heparin Sodium (Porcine) (Heparin -) 5,000 unit SQ TID [facility] Last Admin: 12/28/17 06:54 Dose: 5,000 unit Sodium Chloride (Normal Saline -) 1,000 mls @ 75 mls/hr IV ASDIR [facility] Last Admin: 12/27/17 22:11 Dose: 75 mls/hr Piperacillin Sod/Tazobactam (Sod 3.375 gm/ Dextrose) 50 mls @ 100 mls/hr IVPB Q8H-IV [facility]; Protocol Last Admin: 12/28/17 09:51 Dose: 100 mls/hr Oseltamivir Phosphate (Tamiflu -) 30 mg PO BID [facility] Stop: 12/30/17 10:01 Last Admin: 12/28/17 09:23 Dose: 30 mg - Objective Vital Signs: Vital Signs Temperature 98.7 F 12/28/17 08:06 Pulse Rate 67 12/28/17 08:06 Respiratory Rate 20 12/28/17 08:06 Blood Pressure 123/67 12/28/17 08:06 O2 Sat by Pulse Oximetry (%) 96 12/28/17 08:06 Constitutional: Yes: No Distress, Calm Cardiovascular: Yes: Regular Rate and Rhythm Respiratory: Yes: Regular, Poor Air Entry Gastrointestinal: Yes: Normal Bowel Sounds, Soft Musculoskeletal: Yes: WNL Extremities: Yes: WNL Neurological: Yes: Alert, Oriented Psychiatric: Yes: Alert, Oriented Labs: CBC, BMP 12/28/17 06:45 12/28/17 06:45 INR, PTT INR 1.26 (0.82-1.09) H 12/27/17 12:25 Assessment/Plan Problem List - Problems (1) Influenza B Code(s): J10.1 - FLU DUE TO OTH IDENT INFLUENZA VIRUS W OTH RESP MANIFEST (2) Pneumonia Code(s): J18.9 - PNEUMONIA, UNSPECIFIED ORGANISM (3) Hilar adenopathy Code(s): R59.0 - LOCALIZED ENLARGED LYMPH NODES (4) Mediastinal adenopathy Code(s): R59.0 - LOCALIZED ENLARGED LYMPH NODES plan resp support as needed iv abx incentive tammy tamiflu course rest as per the team
--- NOTE | 2017-12-28 13:37 | PN ---
Physical Exam: SUBJECTIVE: Patient seen and examined, feeling better, after coughing up sputum. OBJECTIVE: Vital Signs Period Temp Pulse Resp BP Sys/Woodard Pulse Ox Last 24 Hr 98.2 F-102.9 F 63-84 17-20 108-124/57-68 95-97 GENERAL: The patient is awake, alert, and fully oriented, in no acute distress. HEAD: Normal with no signs of trauma. EYES: PERRL, extraocular movements intact, sclera anicteric, conjunctiva clear. No ptosis. ENT: Ears normal, nares patent, oropharynx clear without exudates, moist mucous membranes. NECK: Trachea midline, full range of motion, supple. LUNGS: Breath sounds equal, clear to auscultation bilaterally, no wheezes, no crackles, no accessory muscle use. HEART: Regular rate and rhythm, S1, S2 without murmur, rub or gallop. ABDOMEN: Soft, nontender, nondistended, normoactive bowel sounds, no guarding, no rebound, no hepatosplenomegaly, no masses. EXTREMITIES: 2+ pulses, warm, well-perfused, no edema. NEUROLOGICAL: Cranial nerves II through XII grossly intact. Normal speech, gait not observed. PSYCH: Normal mood, normal affect. SKIN: Warm, dry, normal turgor, no rashes or lesions noted Laboratory Results - last 24 hr 12/28/17 12/28/17 06:45 06:45 WBC 4.8 RBC 3.78 L Hgb 11.4 L Hct 34.5 L MCV 91.2 MCH 30.0 MCHC 32.9 RDW 12.9 Plt Count 198 MPV 8.6 Absolute Neuts (auto) 3.2 Neutrophils % 66.1 Lymphocytes % 16.0 D Monocytes % 14.4 H Eosinophils % 3.1 D Basophils % 0.4 Sodium 134 L Potassium 4.3 Chloride 103 Carbon Dioxide 21 L Anion Gap 10 BUN 16 Creatinine 1.1 Creat Clearance w eGFR > 60 Random Glucose 87 D Calcium 8.2 L Magnesium 2.0 Total Bilirubin 0.6 AST 38 ALT 47 H Alkaline Phosphatase 74 Total Protein 5.9 L Albumin 2.8 L Active Medications Generic Name Dose Route Start Last Admin Trade Name Freq PRN Reason Stop Dose Admin Acetaminophen 650 mg 12/26/17 18:18 12/27/17 18:50 Tylenol - PO 650 mg Q6H PRN Administration FEVER Albuterol/Ipratropium 1 amp 12/26/17 18:15 12/28/17 12:01 Duoneb - NEB 1 amp RQID MINH Administration Guaifenesin/Codeine Phosphate 10 ml 12/26/17 18:48 12/27/17 10:54 Robitussin Ac - PO 10 ml Q8H PRN Administration COUGH Heparin Sodium (Porcine) 5,000 unit 12/27/17 06:00 12/28/17 06:54 Heparin - SQ 5,000 unit TID MINH Administration Sodium Chloride 1,000 mls @ 75 mls/hr 12/26/17 18:30 12/27/17 22:11 Normal Saline - IV 75 mls/hr ASDIR MINH Administration Piperacillin Sod/Tazobactam 50 mls @ 100 mls/hr 12/28/17 09:39 12/28/17 09:51 Sod 3.375 gm/ Dextrose IVPB 100 mls/hr Q8H-IV MIN[facility] Administration Protocol Oseltamivir Phosphate 30 mg 12/26/17 22:00 12/28/17 09:23 Tamiflu - PO 12/30/17 10:01 30 mg BID MIN[facility] Administration ASSESSMENT/PLAN: 82 year-old male with a 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 Community-acquired pneumonia Influenza B --continue Zosyn (day #3) --received 2 doses Tamiflu prior to arrival, complete 8 more doses --duonebs --maintain SpO2>94% --collect urine antigen, needs to be collected --ID following --pulmonary following Paget's Disease of the breast --stable FEN Fluids: NS@75mL/hr Electrolytes: replete as inidcated Nutrition: regular diet DVT prophylaxis: subq heparin Dispo: continues to require inpatient care. Full code. Visit type - Emergency Visit Emergency Visit: Yes ED Registration Date: 12/27/17 Care time: The patient presented to the Emergency Department on the above date and was hospitalized for further evaluation of their emergent condition. - New Patient This patient is new to me today: Yes Date on this admission: 12/28/17 - Critical Care Critical Care patient: No
[2017-12-28] MEDS: guaiFENesin/CODEINE 10 ML UNIT-DOSE CUPS PO PRN (21:31)
[2017-12-28] MEDS: SODIUM CHLORIDE 1,000 ML IV SCH (21:32)
[2017-12-29] MEDS ORDERED: DEXTROSE 5%-WATER - 50 ML IVPB ONE ×3 (00:09→16:51)
[2017-12-29] MEDS ORDERED: PIPERACILLIN/TAZOBACTAM 3.375 GM VIAL IVPB ONE ×3 (00:09→16:51)
[2017-12-29] MEDS: ALBUTEROL SO4 2.5/IPRATROPIUM 0.5 INH SOL 3 ML VIAL.NEB. NEB SCH ×4 (01:00→21:17)
[2017-12-29] MEDS: PIPERACILLIN/TAZOB 3.375 GM 3.375 GM in DEXTROSE 5%-WATER - 50 ML IVPB SCH ×3 (01:58→17:49)
[2017-12-29] MEDS: HEPARIN NA (PORCINE) 5,000 UNITS/ML 1ML VIAL SQ SCH ×3 (05:33→21:17)
--- NOTE | 2017-12-29 07:26 | PN ---
Progress Note, Physician History of Present Illness: PULMONARY ALERT,FEELING BETTER,AFEBRILE ,-SOB,LESS COUGH. O2 SAT 98% ON RA - Current Medication List Current Medications: Active Medications Acetaminophen (Tylenol -) 650 mg PO Q6H PRN PRN Reason: FEVER Last Admin: 12/27/17 18:50 Dose: 650 mg Albuterol/Ipratropium (Duoneb -) 1 amp NEB RQID MINH Last Admin: 12/28/17 21:32 Dose: 1 amp Guaifenesin/Codeine Phosphate (Robitussin Ac -) 10 ml PO Q8H PRN PRN Reason: COUGH Last Admin: 12/28/17 21:31 Dose: 10 ml Heparin Sodium (Porcine) (Heparin -) 5,000 unit SQ TID MINH Last Admin: 12/29/17 05:33 Dose: 5,000 unit Sodium Chloride (Normal Saline -) 1,000 mls @ 75 mls/hr IV ASDIR MINH Last Admin: 12/28/17 21:32 Dose: 75 mls/hr Piperacillin Sod/Tazobactam (Sod 3.375 gm/ Dextrose) 50 mls @ 100 mls/hr IVPB Q8H-IV MIN[facility]; Protocol Last Admin: 12/29/17 01:58 Dose: 100 mls/hr Oseltamivir Phosphate (Tamiflu -) 30 mg PO BID [facility] Stop: 12/30/17 10:01 Last Admin: 12/28/17 21:32 Dose: 30 mg - Objective Vital Signs: Vital Signs Temperature 98.1 F 12/29/17 06:00 Pulse Rate 67 12/29/17 06:00 Respiratory Rate 18 12/29/17 06:00 Blood Pressure 131/72 12/29/17 06:00 O2 Sat by Pulse Oximetry (%) 95 12/28/17 20:26 Constitutional: Yes: Well Nourished, Calm Eyes: Yes: WNL HENT: Yes: WNL Neck: Yes: WNL Cardiovascular: Yes: Regular Rate and Rhythm, S1, S2 Respiratory: Yes: Rales (CRACKLES ON R) Gastrointestinal: Yes: Normal Bowel Sounds, Soft Extremities: Yes: WNL Edema: No Labs: CBC, BMP Problem List - Problems (1) Influenza B Code(s): J10.1 - FLU DUE TO OTH IDENT INFLUENZA VIRUS W OTH RESP MANIFEST (2) Pneumonia Code(s): J18.9 - PNEUMONIA, UNSPECIFIED ORGANISM (3) Hilar adenopathy Code(s): R59.0 - LOCALIZED ENLARGED LYMPH NODES (4) Mediastinal adenopathy Code(s): R59.0 - LOCALIZED ENLARGED LYMPH NODES Assessment/Plan IMP RUL/RLL PNEUMONIA INFLUENZA B MEDIASTINAL AND HILAR ADENOPATHY LIKELY REACTIVE PLAN IV ABX TAMIFLU O2 NEEDED INHALED BRONCHODILATORS LEGIONELLA URINARY ANTIGEN NEGATIVE F/U CHEST X-RAY DR BECKETT Problem List - Problems (1) Influenza B Code(s): J10.1 - FLU DUE TO OTH IDENT INFLUENZA VIRUS W OTH RESP MANIFEST (2) Pneumonia Code(s): J18.9 - PNEUMONIA, UNSPECIFIED ORGANISM (3) Hilar adenopathy Code(s): R59.0 - LOCALIZED ENLARGED LYMPH NODES (4) Mediastinal adenopathy Code(s): R59.0 - LOCALIZED ENLARGED LYMPH NODES
[2017-12-29 08:51] LABS: BASO % 0.7 % (0-2.0); EOS % 5.9 % (0-4.5); HEMATOCRIT 32.5 % (35.4-49); HEMOGLOBIN 11.1 GM/dl (11.7-16.9); LYMPH % 31.2 % (8-40); MCH 31.2 pg (25.7-33.7); MEAN CELL VOLUME 91.8 fl (80-96); MONO % 12.9 % (3.8-10.2); NEUT % 49.3 % (42.8-82.8); PLATELET COUNT 219 K/MM3 (134-434); RBC 3.54 M/mm3 (4.00-5.60); RDW 12.6 % (11.9-15.9); WHITE BLOOD COUNT 4.3 K/mm3 (4.0-10.8)
[2017-12-29 09:04] LABS: ALBUMIN 2.8 g/dl (3.5-5.0); ALK PHOS 73 U/L (32-92); ANION GAP 10 MMOL/L (8-16); BILIRUBIN,TOTAL 0.5 mg/dl (0.2-1.0); BLOOD UREA NITROGEN 14 mg/dl (7-18); CALCIUM 8.2 mg/dl (8.4-10.2); CHLORIDE 104 mmol/L (98-107); CO2 24 mmol/L (22-28); CREATININE 1.1 mg/dl (0.6-1.3); GLUCOSE,RANDOM 84 mg/dl (74-106); MAGNESIUM 2.1 mg/dL (1.8-2.4); POTASSIUM 4.1 mmol/L (3.5-5.1); SGOT/AST 75 U/L (10-42); SGPT/ALT 92 U/L (10-40); SODIUM 138 mmol/L (136-145); TOT PROT 5.9 g/dl (6.4-8.3)
--- NOTE | 2017-12-29 10:09 | PN ---
Physical Exam: SUBJECTIVE: Patient seen and examined OBJECTIVE: Vital Signs Period Temp Pulse Resp BP Sys/Woodard Pulse Ox Last 24 Hr 98.1 F-98.7 F 63-76 18-20 115-141/66-76 95-97 GENERAL: The patient is awake, alert, and fully oriented, in no acute distress. LUNGS: Diminished sounds on right HEART: Regular rate and rhythm, S1, S2 +murmur ABDOMEN: Soft, nontender, nondistended EXTREMITIES: 2+ pulses, warm, well-perfused, no edema. NEUROLOGICAL: Cranial nerves II through XII grossly intact. Normal speech Laboratory Results - last 24 hr 12/29/17 12/29/17 08:24 08:24 WBC 4.3 RBC 3.54 L Hgb 11.1 L Hct 32.5 L MCV 91.8 MCH 31.2 MCHC 34.0 RDW 12.6 Plt Count 219 MPV 8.0 Absolute Neuts (auto) 2.1 Neutrophils % 49.3 D Lymphocytes % 31.2 D Monocytes % 12.9 H Eosinophils % 5.9 H D Basophils % 0.7 Sodium 138 Potassium 4.1 Chloride 104 Carbon Dioxide 24 Anion Gap 10 BUN 14 Creatinine 1.1 Creat Clearance w eGFR > 60 Random Glucose 84 Calcium 8.2 L Magnesium 2.1 Total Bilirubin 0.5 AST 75 H D ALT 92 H D Alkaline Phosphatase 73 Total Protein 5.9 L Albumin 2.8 L Active Medications Generic Name Dose Route Start Last Admin Trade Name Freq PRN Reason Stop Dose Admin Acetaminophen 650 mg 12/26/17 18:18 12/27/17 18:50 Tylenol - PO 650 mg Q6H PRN Administration FEVER Albuterol/Ipratropium 1 amp 12/26/17 18:15 12/28/17 21:32 Duoneb - NEB 1 amp RQID MINH Administration Guaifenesin/Codeine Phosphate 10 ml 12/26/17 18:48 12/28/17 21:31 Robitussin Ac - PO 10 ml Q8H PRN Administration COUGH Heparin Sodium (Porcine) 5,000 unit 12/27/17 06:00 12/29/17 05:33 Heparin - SQ 5,000 unit TID MINH Administration Sodium Chloride 1,000 mls @ 75 mls/hr 12/26/17 18:30 12/28/17 21:32 Normal Saline - IV 75 mls/hr ASDIR MIN[facility] Administration Piperacillin Sod/Tazobactam 50 mls @ 100 mls/hr 12/28/17 09:39 12/29/17 01:58 Sod 3.375 gm/ Dextrose IVPB 100 mls/hr Q8H-IV [facility] Administration Protocol Oseltamivir Phosphate 30 mg 12/26/17 22:00 12/28/17 21:32 Tamiflu - PO 12/30/17 10:01 30 mg BID [facility] Administration ASSESSMENT/PLAN: 82 year-old male with a 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 Community-acquired pneumonia Influenza B --continue Zosyn (day #3) --received 2 doses Tamiflu prior to arrival, complete 8 doses renally dosed --duonebs --maintain SpO2>94% --urine antigen negative --ID following --pulmonary following Paget's Disease of the breast --stable Mild hyponatremia --12/27 Na 131, improved today 134 --continue to trend FEN Fluids: NS@75mL/hr Electrolytes: replete as inidcated Nutrition: regular diet DVT prophylaxis: subq heparin Dispo: continues to require inpatient care. Full code. Visit type - Emergency Visit Emergency Visit: Yes ED Registration Date: 12/27/17 Care time: The patient presented to the Emergency Department on the above date and was hospitalized for further evaluation of their emergent condition. - New Patient This patient is new to me today: No - Critical Care Critical Care patient: No
[2017-12-29] MEDS: OSELTAMIVIR PHOSPHATE 30 MG CAPSULE PO SCH ×2 (10:40→21:17)
--- NOTE | 2017-12-29 13:46 | PN ---
Progress Note, Physician History of Present Illness: patient stable breathing much better - Current Medication List Current Medications: Active Medications Acetaminophen (Tylenol -) 650 mg PO Q6H PRN PRN Reason: FEVER Last Admin: 12/27/17 18:50 Dose: 650 mg Albuterol/Ipratropium (Duoneb -) 1 amp NEB RQID MINH Last Admin: 12/29/17 08:40 Dose: 1 amp Guaifenesin/Codeine Phosphate (Robitussin Ac -) 10 ml PO Q8H PRN PRN Reason: COUGH Last Admin: 12/28/17 21:31 Dose: 10 ml Heparin Sodium (Porcine) (Heparin -) 5,000 unit SQ TID [facility] Last Admin: 12/29/17 05:33 Dose: 5,000 unit Sodium Chloride (Normal Saline -) 1,000 mls @ 75 mls/hr IV ASDIR [facility] Last Admin: 12/28/17 21:32 Dose: 75 mls/hr Piperacillin Sod/Tazobactam (Sod 3.375 gm/ Dextrose) 50 mls @ 100 mls/hr IVPB Q8H-IV [facility]; Protocol Last Admin: 12/29/17 10:40 Dose: 100 mls/hr Oseltamivir Phosphate (Tamiflu -) 30 mg PO BID [facility] Stop: 12/30/17 10:01 Last Admin: 12/29/17 10:40 Dose: 30 mg - Objective Vital Signs: Vital Signs Temperature 98.4 F 12/29/17 10:00 Pulse Rate 64 12/29/17 10:00 Respiratory Rate 18 12/29/17 10:00 Blood Pressure 124/64 12/29/17 10:00 O2 Sat by Pulse Oximetry (%) 99 12/29/17 10:00 Constitutional: Yes: No Distress, Calm Cardiovascular: Yes: Regular Rate and Rhythm Respiratory: Yes: Regular, CTA Bilaterally Gastrointestinal: Yes: Normal Bowel Sounds, Soft Musculoskeletal: Yes: WNL Extremities: Yes: WNL Neurological: Yes: Alert, Oriented Psychiatric: Yes: Alert, Oriented Labs: CBC, BMP 12/29/17 08:24 12/29/17 08:24 INR, PTT INR 1.26 (0.82-1.09) H 12/27/17 12:25 Assessment/Plan Problem List - Problems (1) Influenza B Code(s): J10.1 - FLU DUE TO OTH IDENT INFLUENZA VIRUS W OTH RESP MANIFEST (2) Pneumonia Code(s): J18.9 - PNEUMONIA, UNSPECIFIED ORGANISM (3) Hilar adenopathy Code(s): R59.0 - LOCALIZED ENLARGED LYMPH NODES (4) Mediastinal adenopathy Code(s): R59.0 - LOCALIZED ENLARGED LYMPH NODES plan resp support as needed iv abx incentive tammy tamiflu course rest as per the team if patient stable can change to augmentin tomorrow for another 5 days
--- NOTE | 2017-12-29 23:52 | EKG ---
Test Reason : Blood Pressure : / mmHG Vent. Rate : 068 BPM Atrial Rate : 068 BPM P-R Int : 130 ms QRS Dur : 100 ms QT Int : 408 ms P-R-T Axes : 045 -13 054 degrees QTc Int : 433 ms NORMAL SINUS RHYTHM NORMAL ECG NO PREVIOUS ECGS AVAILABLE Confirmed by ISH MONTOYA MD ([id number]) on 12/29/2017 11:52:17 PM Referred By: PURNIMA Confirmed By:ISH MONTOYA MD
[2017-12-30] MEDS ORDERED: PIPERACILLIN/TAZOBACTAM 3.375 GM VIAL IVPB ONE ×2 (01:03→09:15)
[2017-12-30] MEDS ORDERED: DEXTROSE 5%-WATER - 50 ML IVPB ONE ×2 (01:03→09:15)
[2017-12-30] MEDS: PIPERACILLIN/TAZOB 3.375 GM 3.375 GM in DEXTROSE 5%-WATER - 50 ML IVPB SCH ×2 (01:36→09:40)
[2017-12-30 06:35] VITALS: BP 121/64; PULSE 82; TEMP 98.3
[2017-12-30] MEDS: HEPARIN NA (PORCINE) 5,000 UNITS/ML 1ML VIAL SQ SCH (06:50)
--- NOTE | 2017-12-30 07:07 | PN ---
Progress Note, Physician History of Present Illness: pulmonary alert,no distress,-sob,less cough - Current Medication List Current Medications: Active Medications Acetaminophen (Tylenol -) 650 mg PO Q6H PRN PRN Reason: FEVER Last Admin: 12/27/17 18:50 Dose: 650 mg Albuterol/Ipratropium (Duoneb -) 1 amp NEB RQID [facility] Last Admin: 12/29/17 21:17 Dose: 1 amp Guaifenesin/Codeine Phosphate (Robitussin Ac -) 10 ml PO Q8H PRN PRN Reason: COUGH Last Admin: 12/28/17 21:31 Dose: 10 ml Heparin Sodium (Porcine) (Heparin -) 5,000 unit SQ TID [facility] Last Admin: 12/30/17 06:50 Dose: 5,000 unit Sodium Chloride (Normal Saline -) 1,000 mls @ 75 mls/hr IV ASDIR [facility] Last Admin: 12/28/17 21:32 Dose: 75 mls/hr Piperacillin Sod/Tazobactam (Sod 3.375 gm/ Dextrose) 50 mls @ 100 mls/hr IVPB Q8H-IV [facility]; Protocol Last Admin: 12/30/17 01:36 Dose: 100 mls/hr Oseltamivir Phosphate (Tamiflu -) 30 mg PO BID [facility] Stop: 12/30/17 10:01 Last Admin: 12/29/17 21:17 Dose: 30 mg - Objective Vital Signs: Vital Signs Temperature 98.3 F 12/30/17 06:00 Pulse Rate 82 12/30/17 06:00 Respiratory Rate 18 12/30/17 06:00 Blood Pressure 121/64 12/30/17 06:00 O2 Sat by Pulse Oximetry (%) 95 12/30/17 06:00 Constitutional: Yes: Well Nourished, Calm Eyes: Yes: WNL HENT: Yes: WNL Neck: Yes: WNL Cardiovascular: Yes: Regular Rate and Rhythm, S1, S2 Respiratory: Yes: Rales (crackles r base) Gastrointestinal: Yes: Normal Bowel Sounds, Soft Extremities: Yes: WNL Edema: No Labs: CBC, BMP 12/29/17 08:24 12/29/17 08:24 INR, PTT INR 1.26 (0.82-1.09) H 12/27/17 12:25 - ....Imaging Chest X-ray: Report Reviewed, Image Reviewed Problem List - Problems (1) Influenza B Code(s): J10.1 - FLU DUE TO OTH IDENT INFLUENZA VIRUS W OTH RESP MANIFEST (2) Pneumonia Code(s): J18.9 - PNEUMONIA, UNSPECIFIED ORGANISM (3) Hilar adenopathy Code(s): R59.0 - LOCALIZED ENLARGED LYMPH NODES (4) Mediastinal adenopathy Code(s): R59.0 - LOCALIZED ENLARGED LYMPH NODES Assessment/Plan IMP RUL/RLL PNEUMONIA clinically improved INFLUENZA B MEDIASTINAL AND HILAR ADENOPATHY LIKELY REACTIVE PLAN ABX as per ID TAMIFLU INHALED BRONCHODILATORS F/U CHEST CT [address] BECKETT Problem List - Problems (1) Influenza B Code(s): J10.1 - FLU DUE TO OTH IDENT INFLUENZA VIRUS W OTH RESP MANIFEST (2) Pneumonia Code(s): J18.9 - PNEUMONIA, UNSPECIFIED ORGANISM (3) Hilar adenopathy Code(s): R59.0 - LOCALIZED ENLARGED LYMPH NODES (4) Mediastinal adenopathy Code(s): R59.0 - LOCALIZED ENLARGED LYMPH NODES
--- NOTE | 2017-12-30 08:06 | DS ---
Physical Exam: SUBJECTIVE: Patient seen and examined. Feels well, wants to go home. OBJECTIVE: Vital Signs Period Temp Pulse Resp BP Sys/Woodard Pulse Ox Last 24 Hr 97.6 F-98.7 F 64-82 18-18 121-125/64-70 95-100 PHYSICAL EXAM GENERAL: The patient is awake, alert, and fully oriented, in no acute distress. LUNGS: Diminished sounds on right HEART: Regular rate and rhythm, S1, S2 +murmur ABDOMEN: Soft, nontender, nondistended EXTREMITIES: 2+ pulses, warm, well-perfused, no edema. NEUROLOGICAL: Cranial nerves II through XII grossly intact. Normal speech LABS Laboratory Results - last 24 hr 12/29/17 12/29/17 08:24 08:24 WBC 4.3 RBC 3.54 L Hgb 11.1 L Hct 32.5 L MCV 91.8 MCH 31.2 MCHC 34.0 RDW 12.6 Plt Count 219 MPV 8.0 Absolute Neuts (auto) 2.1 Neutrophils % 49.3 D Lymphocytes % 31.2 D Monocytes % 12.9 H Eosinophils % 5.9 H D Basophils % 0.7 Sodium 138 Potassium 4.1 Chloride 104 Carbon Dioxide 24 Anion Gap 10 BUN 14 Creatinine 1.1 Creat Clearance w eGFR > 60 Random Glucose 84 Calcium 8.2 L Magnesium 2.1 Total Bilirubin 0.5 AST 75 H D ALT 92 H D Alkaline Phosphatase 73 Total Protein 5.9 L Albumin 2.8 L HOSPITAL COURSE: Date of Admission:12/27/17 Date of Discharge: 12/30/17 Pre hospital course 82 year-old male with a PMH significant for 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 Patient was seen by his PCP Dr. Polk yesterday and a flu swab was positive for Influenza B. Patient was started on Tamiflu. Patient presented to the ED today with worsening cough and SOB. Temp at home to 103.4 with shaking chills, headache, body aches. ER course was notable for: (1) Tm 100.0 (2) CXR: RUL infiltrate (3) 12/25/17 Flu swab: positive influenza B Subsequent hospital course Community-acquired pneumonia Influenza B --treated with Zosyn x 4 days; discharged on clindamycin --completed course of Tamiflu Paget's Disease of the breast --stable Mild hyponatremia --resolved Minutes to complete discharge: 35 Discharge Summary Reason For Visit: PNEUMONIA, FLU Current Active Problems Hilar adenopathy (Acute) Influenza B (Acute) Mediastinal adenopathy (Acute) Pneumonia (Acute) Condition: Improved - Instructions Diet, Activity, Other Instructions: A prescription has been sent to your pharmacy for clindamycin which is an antibiotic. Take this medication as directed and be sure to finish all the medication. It is recommended you follow up with your primary care provider within one week of your discharge. You should also have a follow-up chest x-ray in 6 weeks. Return to the emergency department for any new or worsening symptoms. Referrals: Agusto Polk MD [Staff Physician] - Disposition: HOME - Home Medications Comprehensive Discharge Medication List: Ambulatory Orders Cholecalciferol (Vitamin D3) [D3-2000] 1 tab PO DAILY 12/26/17 Levofloxacin 750 mg PO DAILY #5 tablet 12/30/17 This patient is new to me today: No Emergency Visit: Yes ED Registration Date: 12/27/17 Care time: The patient presented to the Emergency Department on the above date and was hospitalized for further evaluation of their emergent condition. Critical Care patient: No - Discharge Referral Referred to [facility] Yes Physician Referral: Agusto Polk MD (Int Med)
--- NOTE | 2017-12-30 09:09 | PN ---
Progress Note, Physician History of Present Illness: patient doing well no complaints breathing well - Current Medication List Current Medications: Active Medications Acetaminophen (Tylenol -) 650 mg PO Q6H PRN PRN Reason: FEVER Last Admin: 12/27/17 18:50 Dose: 650 mg Albuterol/Ipratropium (Duoneb -) 1 amp NEB RQID MINH Last Admin: 12/29/17 21:17 Dose: 1 amp Guaifenesin/Codeine Phosphate (Robitussin Ac -) 10 ml PO Q8H PRN PRN Reason: COUGH Last Admin: 12/28/17 21:31 Dose: 10 ml Heparin Sodium (Porcine) (Heparin -) 5,000 unit SQ TID MINH Last Admin: 12/30/17 06:50 Dose: 5,000 unit Sodium Chloride (Normal Saline -) 1,000 mls @ 75 mls/hr IV ASDIR MINH Last Admin: 12/28/17 21:32 Dose: 75 mls/hr Piperacillin Sod/Tazobactam (Sod 3.375 gm/ Dextrose) 50 mls @ 100 mls/hr IVPB Q8H-IV MINH; Protocol Last Admin: 12/30/17 01:36 Dose: 100 mls/hr Oseltamivir Phosphate (Tamiflu -) 30 mg PO BID MINH Stop: 12/30/17 10:01 Last Admin: 12/29/17 21:17 Dose: 30 mg - Objective Vital Signs: Vital Signs Temperature 98.3 F 12/30/17 06:00 Pulse Rate 82 12/30/17 06:00 Respiratory Rate 18 12/30/17 06:00 Blood Pressure 121/64 12/30/17 06:00 O2 Sat by Pulse Oximetry (%) 95 12/30/17 08:14 Constitutional: Yes: No Distress, Calm Cardiovascular: Yes: Regular Rate and Rhythm Respiratory: Yes: Regular, CTA Bilaterally Gastrointestinal: Yes: Normal Bowel Sounds, Soft Musculoskeletal: Yes: WNL Extremities: Yes: WNL Neurological: Yes: Alert, Oriented Psychiatric: Yes: Alert, Oriented Labs: CBC, BMP 12/29/17 08:24 12/29/17 08:24 INR, PTT INR 1.26 (0.82-1.09) H 12/27/17 12:25 Assessment/Plan Problem List - Problems (1) Influenza B Code(s): J10.1 - FLU DUE TO OTH IDENT INFLUENZA VIRUS W OTH RESP MANIFEST (2) Pneumonia Code(s): J18.9 - PNEUMONIA, UNSPECIFIED ORGANISM (3) Hilar adenopathy Code(s): R59.0 - LOCALIZED ENLARGED LYMPH NODES (4) Mediastinal adenopathy Code(s): R59.0 - LOCALIZED ENLARGED LYMPH NODES patient doing well no issues plan can switch patient to clinda 300 mg q6hrly for 5 more days incentive tammy monitor resp status rest as per the team
[2017-12-30] MEDS: ALBUTEROL SO4 2.5/IPRATROPIUM 0.5 INH SOL 3 ML VIAL.NEB. NEB SCH (09:32)
[2017-12-30] MEDS: OSELTAMIVIR PHOSPHATE 30 MG CAPSULE PO SCH (09:39)
[2017-12-30] MEDS: ACETAMINOPHEN 325 MG TABLET (FP) PO PRN (09:40)
--- NOTE | 2017-12-31 12:08 | PN ---
Physical Exam: SUBJECTIVE: Patient seen and examined at bedside. Continues to feel better. Cough improved. OBJECTIVE: 12/29/17 12/29/17 12/29/17 08:35 10:00 14:00 Temperature 98.4 F 97.6 F Pulse Rate 64 71 Respiratory 18 18 Rate Blood Pressure 124/64 123/66 O2 Sat by Pulse 95 99 100 Oximetry (%) GENERAL: The patient is awake, alert, and fully oriented, in no acute distress. LUNGS: CTA HEART: Regular rate and rhythm, S1, S2 +murmur ABDOMEN: Soft, nontender, nondistended EXTREMITIES: 2+ pulses, warm, well-perfused, no edema. NEUROLOGICAL: Cranial nerves II through XII grossly intact. Normal speech CBCD WBC 4.3 K/mm3 (4.0-10.8) 12/29/17 08:24 RBC 3.54 M/mm3 (4.00-5.60) L 12/29/17 08:24 Hgb 11.1 GM/dl (11.7-16.9) L 12/29/17 08:24 Hct 32.5 % (35.4-49) L 12/29/17 08:24 MCV 91.8 fl (80-96) 12/29/17 08:24 MCHC 34.0 g/dl (32.0-35.9) 12/29/17 08:24 RDW 12.6 % (11.9-15.9) 12/29/17 08:24 Plt Count 219 K/MM3 (134-434) 12/29/17 08:24 MPV 8.0 fl (7.5-11.1) 12/29/17 08:24 CMP Sodium 138 mmol/L (136-145) 12/29/17 08:24 Potassium 4.1 mmol/L (3.5-5.1) 12/29/17 08:24 Chloride 104 mmol/L (98-107) 12/29/17 08:24 Carbon Dioxide 24 mmol/L (22-28) 12/29/17 08:24 Anion Gap 10 MMOL/L (8-16) 12/29/17 08:24 BUN 14 mg/dl (7-18) 12/29/17 08:24 Creatinine 1.1 mg/dl (0.6-1.3) 11/19/18 08:24 Creat Clearance w eGFR > 60 (>60) 12/29/17 08:24 Calcium 8.2 mg/dl (8.4-10.2) L 12/29/17 08:24 Total Bilirubin 0.5 mg/dl (0.2-1.0) 12/29/17 08:24 AST 75 U/L (10-42) H D 12/29/17 08:24 ALT 92 U/L (10-40) H D 12/29/17 08:24 Alkaline Phosphatase 73 U/L (32-92) 12/29/17 08:24 Total Protein 5.9 g/dl (6.4-8.3) L 12/29/17 08:24 Albumin 2.8 g/dl (3.5-5.0) L 12/29/17 08:24 ASSESSMENT/PLAN: 82 year-old male with a 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 Community-acquired pneumonia Influenza B --continue Zosyn (day #4) --received 2 doses Tamiflu prior to arrival, complete 8 doses renally dosed --duonebs --maintain SpO2>94% --urine antigen negative --ID following --pulmonary following Paget's Disease of the breast --stable Mild hyponatremia, resolved --Na 138 today FEN Fluids: NS@75mL/hr Electrolytes: replete as inidcated Nutrition: regular diet DVT prophylaxis: subq heparin Dispo: continues to require inpatient care. Full code. Visit type - Emergency Visit Emergency Visit: Yes ED Registration Date: 12/27/17 Care time: The patient presented to the Emergency Department on the above date and was hospitalized for further evaluation of their emergent condition. - New Patient This patient is new to me today: No - Critical Care Critical Care patient: No
== END 2017-12-30 10:45 | disposition home or self-care (01) | DRG 194 ==
LOC: FER 10:21 → FM/S 13:25 → OBSVTOIN 12-27 12:25
PROVIDERS: ADMIT Internal Medicine; ATTEND Nurse Practitioner Acute Care
DX: J11.08 Influenza due to unidentified influenza virus with specified pneumonia (principal); E87.1 Hypo-osmolality and hyponatremia; R06.02 Shortness of breath; R59.0 Localized enlarged lymph nodes; R50.9 Fever, unspecified; Z88.0 Allergy status to penicillin; Z85.3 Personal history of malignant neoplasm of breast
CPT/HCPCS: 36415; 71046-TC-FY; 71250-TC; 80053; 82550; 83735; 83880; 84100; 84484; 85025; 85610; 85730; 87040; 87070; 87205; 87804; 87899; 93005; 94640; 99282-25; G0378; J1644; J7030

== ENCOUNTER 2021-01-10 06:40 | Day surgery (SDC) | payer OTHER, BC ==
[2021-01-09 15:31] VITALS: BMI 23.0
[2021-01-10 07:01] VITALS: TEMP 98
[2021-01-10] MEDS ORDERED: MIDAZOLAM HCL 2 MG/2 ML SINGLE DOSE VIAL ONE (07:11)
[2021-01-10] MEDS ORDERED: ROCURONIUM BROMIDE 50 MG/5 ML SYRINGE ONE (07:11)
[2021-01-10] MEDS ORDERED: PROPOFOL 20 ML ONE ×2 (07:11→08:10)
[2021-01-10] MEDS ORDERED: LIDOCAINE HCL 2% (20ML MULTI-DOSE VIAL) ONE (07:13)
[2021-01-10] MEDS ORDERED: ONDANSETRON 4 MG/2 ML VIAL ONE (08:15)
[2021-01-10] MEDS ORDERED: ceFAZolin SODIUM 1 GM VIAL ONE (08:15)
[2021-01-10] MEDS ORDERED: KETOROLAC TROMETHAMINE 30 MG/1 ML VIAL ONE (08:15)
[2021-01-10 09:31] VITALS: BP 133/90; PULSE 66
== END 2021-01-10 09:30 | disposition home or self-care (01) ==
LOC: FASU 06:40
PROVIDERS: ATTEND Orthopaedic Surgery Hand Surgery
PROC: 0LN80ZZ Release Left Hand Tendon, Open Approach (ICD-10-PCS; 2021-01-10)
PROC: 01N50ZZ Release Median Nerve, Open Approach (ICD-10-PCS; principal; 2021-01-10 08:22)
PROC: 0LN80ZZ Release Left Hand Tendon, Open Approach (ICD-10-PCS; 2021-01-10 08:22)
DX: G56.02 Carpal tunnel syndrome, left upper limb (principal); M65.342 Trigger finger, left ring finger; M65.352 Trigger finger, left little finger